=== PATIENT | male | born 1950 | race Caucasian/White ===

== ENCOUNTER → 2022-04-04 | Outpatient (CLI) | payer MEDICARE, OTHER ==
[~2022-04-04] MED LIST: FENOFIBRATE145 MG PO; LEVOTHYROXINE50 MCG PO; LISINOPRIL2.5 MG PO; METFORMIN HCL500 MG PO; Z.0.LEVOTHROID50 MCG; [UNRECOGNIZED DRUG - OTHER]
== END ==
LOC: RAD 12:13
PROVIDERS: ATTEND Family Medicine
DX: M25.561 Pain in right knee (principal)

== ENCOUNTER → 2022-05-18 | Outpatient (CLI) | payer MEDICARE, OTHER | LOC: CT 08:19 | PROVIDERS: ATTEND Family Medicine | DX: R47.81 Slurred speech (principal); R26.9 Unspecified abnormalities of gait and mobility; R42 Dizziness and giddiness | CPT/HCPCS: 70450 ==

== ENCOUNTER 2022-06-21 11:38 | Emergency (ER) | payer MEDICARE, OTHER ==
[~2022-06-21] VITALS: Ht 177.8 cm; Wt 133.8 kg
[2022-06-21] MEDS ORDERED: HYDROCODONE/APAP 5MG-325MG TAB PO ONE (12:00)
[2022-06-21] MEDS ORDERED: METHOCARBAMOL750 MG PO (13:55)
[2022-06-21] MEDS ORDERED: IBUPROFEN600 MG PO (13:55)
== END 2022-06-21 11:55 | disposition home or self-care (01) ==
LOC: ER 11:47
DX: S20.229A Contusion of unspecified back wall of thorax, initial encounter (principal); R06.02 Shortness of breath; I10 Essential (primary) hypertension; E11.9 Type 2 diabetes mellitus without complications; W01.198A Fall on same level from slipping, tripping and stumbling with subsequent striking against other object, initial encounter; Z79.84 Long term (current) use of oral hypoglycemic drugs; Z79.899 Other long term (current) drug therapy; Z87.440 Personal history of urinary (tract) infections; Z85.038 Personal history of other malignant neoplasm of large intestine
CPT/HCPCS: 71250; 99283

== ENCOUNTER → 2022-10-17 | Day surgery (SDC) | payer MEDICARE, OTHER ==
[2022-10-10 08:18] LABS: BASOPHILS % 0.1 % (0.0-1.0); EOSINOPHILS % 0.1 % (0.0-6.0); HEMATOCRIT 42.2 % (38.2-49.6); HEMOGLOBIN 13.4 g/dL (14.0-18.0); LYMPHOCYTES # (AUTO) 1.9 (1.0-3.2); LYMPHOCYTES % 22.5 % (18.0-39.1); MEAN CORPUSCULAR HEMOGLOBIN 27.9 pg (28-32); MEAN CORPUSCULAR HGB CONC 31.8 g/dL (31-35); MEAN CORPUSCULAR VOLUME 87.9 fL (81-99); MONOCYTES # (AUTO) 0.7 (0.2-0.8); MONOCYTES % 8.3 % (4.4-11.3); NEUTROPHILS # (AUTO) 5.7 (2.1-6.9); NEUTROPHILS % 68.8 % (38.7-80.0); PLATELET COUNT 218 x10e3/uL (140-360); RED CELL DISTRIBUTION WIDTH 14.4 % (11.7-14.4)
[~2022-10-17] MED LIST changes: +CRESTOR10 MG PO; +HYOSCYAMINE SULFATE 0.5 MG/ML INJ ONE; +IBUPROFEN600 MG PO; +JANUVIA100 MG PO; +LACTATED RINGER'S 1,000 ML ONE; +METHOCARBAMOL750 MG PO; +PROPOFOL IV EMULSION 10 MG/ML 50 ML VIAL IV ONE
[2022-10-17 12:20] VITALS: BP 133/87
== END | disposition home or self-care (01) ==
LOC: OR 08:15
PROVIDERS: ATTEND Internal Medicine Gastroenterology
DX: R19.5 Other fecal abnormalities (principal); Z85.038 Personal history of other malignant neoplasm of large intestine; D12.2 Benign neoplasm of ascending colon; D12.3 Benign neoplasm of transverse colon; D12.4 Benign neoplasm of descending colon; D12.8 Benign neoplasm of rectum; Z98.0 Intestinal bypass and anastomosis status; K57.30 Diverticulosis of large intestine without perforation or abscess without bleeding; K64.8 Other hemorrhoids; Z71.3 Dietary counseling and surveillance; I10 Essential (primary) hypertension; E11.9 Type 2 diabetes mellitus without complications; E03.9 Hypothyroidism, unspecified; Z01.810 Encounter for preprocedural cardiovascular examination; Z01.812 Encounter for preprocedural laboratory examination; Z79.84 Long term (current) use of oral hypoglycemic drugs; Z79.899 Other long term (current) drug therapy; Z68.38 Body mass index [BMI] 38.0-38.9, adult
CPT/HCPCS: 36415 ×2; 45385; 82948; 85025; 88305; 93005; J1980; J2704; J7121; 45378; 45380